=== PATIENT | male | born 1990 ===

== ENCOUNTER → 2019-10-06 09:47 | Outpatient (CLI) | payer OTHER, SELFPAY ==
[2019-10-06 10:27] LABS: Basophils # 0.1 K/mm3 (0-0.2); Eosinophils # 0.1 K/mm3 (0.0-0.4); Mean Corpuscular Volume 84.5 fl (80-94); Monocytes # 0.4 K/mm3 (0.1-1.0); Red Cell Distribution Width 13.4 % (11.5-17.5)
[2019-10-06 10:34] LABS: Basophils % 0.7 % (0.1-2.0); Eosinophils % 1.7 % (0.1-12.0); Hematocrit 52.3 % (42.0-52.0); Lymphocytes # 2.7 K/mm3 (0.7-4.5); Lymphocytes % 39.5 % (10-50); Mean Corpuscular HGB Conc 34.5 g/dL (31.8-35.4); Mean Corpuscular Hemoglobin 29.1 pg (27.0-31.2); Mean Platelet Volume 7.9 fl (7.4-10.4); Monocytes % 5.8 % (1.7-9.3); Neutrophils # 3.5 K/mm3 (1.8-7.8); Neutrophils % 52.2 % (37.0-80.0); Platelet Count 216 K/mm3 (142-424); Red Blood Count 6.19 M/mm3 (4.60-6.20); White Blood Count 6.8 K/mm3 (4.8-10.8)
[2019-10-06 10:53] LABS: Chloride 103 mmol/L (98-107); Sodium 140 mmol/L (136-145)
[2019-10-06 10:54] LABS: Potassium 4.3 mmoL/L (3.5-5.1)
[2019-10-06 10:56] LABS: Alanine Aminotransferase 32 U/L (12-78); Alkaline Phosphatase 56 U/L (38-126); Anion Gap 12.3 mEq/L (5-15); Aspartate Amino Transferase 29 U/L (17-59); Blood Urea Nitrogen 16 mg/dl (9-20); Carbon Dioxide 29 mmol/L (22.0-30.0); Estimated Glomerular Filt Rate 101 ml/min (>60); GFR (African American) 122 ML/MIN (>60)
[2019-10-06 10:57] LABS: Albumin Level 4.7 g/dl (3.5-5.0); Albumin/Globulin Ratio 1.6 (1.1-1.8); Calcium 9.8 mg/dl (8.4-10.2); Chol/HDL Ratio 4.7 (1-3.5); Cholesterol 185 mg/dl (140-200); Glucose 87 mg/dl (74-100); HDL Cholesterol 39 mg/dl (40-60); Total Protein,Serum 7.7 g/dl (6.3-8.2); Triglycerides 165 mg/dl (30-150); VLDL Cholesterol 33 mg/dL (0-40)
[2019-10-06 11:08] LABS: Direct LDL Cholesterol 105.46 mg/dL (100-129)
[2019-10-06 11:26] LABS: Thyroid Stimulating Hormone 2.93 uIU/mL (0.465-4.68)
[2019-10-07 11:51] LABS: Vitamin B12 489 pg/mL (232-1245)
== END ==
PROVIDERS: Visit Provider Nurse Practitioner Family
DX: Z00.00 Encounter for general adult medical examination without abnormal findings (principal); E78.2 Mixed hyperlipidemia; R53.81 Other malaise
CPT/HCPCS: 36415; 80053; 80061; 82607; 84443; 85025

== ENCOUNTER → 2024-08-12 09:43 | Outpatient (CLI) | payer OTHER, SELFPAY | LOC: SL 09:44 | PROVIDERS: PCP Nurse Practitioner Family; Visit Provider Nurse Practitioner Family | DX: G47.33 Obstructive sleep apnea (adult) (pediatric) (principal) | CPT/HCPCS: G0399 ==